=== PATIENT | female | born 1990 | race Two or more races ===

== ENCOUNTER 2020-09-03 13:51 | Outpatient (CLI) | payer OTHER | END 2020-09-03 13:53 | disposition home or self-care (01) | LOC: NUCLEAR 13:51 | PROVIDERS: ATTEND Internal Medicine Sports Medicine | DX: M81.0 Age-related osteoporosis without current pathological fracture (principal) ==

== ENCOUNTER 2020-09-11 13:33 | Outpatient (CLI) | payer OTHER | END 2020-09-11 13:34 | disposition home or self-care (01) | LOC: NUCLEAR 13:33 | PROVIDERS: ATTEND Internal Medicine Sports Medicine | DX: C73 Malignant neoplasm of thyroid gland (principal); E89.0 Postprocedural hypothyroidism | CPT/HCPCS: 78816; A9552 ==

== ENCOUNTER 2021-11-18 12:42 | Outpatient (CLI) | payer OTHER | END 2021-11-18 12:44 | disposition home or self-care (01) | LOC: NUCLEAR 12:42 | PROVIDERS: ATTEND Internal Medicine Sports Medicine | DX: C73 Malignant neoplasm of thyroid gland (principal); E89.0 Postprocedural hypothyroidism | CPT/HCPCS: 78015; A9529 ==